=== PATIENT | male | born 1970 | race Caucasian/White ===

== ENCOUNTER 2022-06-03 06:08 | Day surgery (SDC) | payer BC, MEDICAID ==
[2022-06-03] MEDS ORDERED: Lidocaine 1%/Sod Bicarbonate in NS 8.4% 1 ML Syringe IDERM PRN (06:15)
[2022-06-03] MEDS ORDERED: Lactated Ringers 1,000 ML IV SCH (06:15)
[2022-06-03] MEDS ORDERED: fentaNYL 100 MCG/2 ML SDV ONE ×2 (06:18→07:18)
[2022-06-03] MEDS ORDERED: Propofol 200 MG/20 ML SDV ONE ×2 (06:19→06:23)
[2022-06-03] MEDS ORDERED: ceFAZolin 2 GM Vial ONE (06:22)
[2022-06-03] MEDS ORDERED: Ketorolac 30 MG/ML SDV ONE (06:24)
[2022-06-03] MEDS ORDERED: Ondansetron 4 MG/2 ML SDV ONE (06:24)
[2022-06-03] MEDS ORDERED: Bupivacaine 0.25% 10 ML SDV ONE (06:29)
[2022-06-03] MEDS ORDERED: Lidocaine 1% PF 2 ML SDV ONE (07:00)
[2022-06-03 08:51] VITALS: BP 118/74; PULSE 45
[2022-06-03] MEDS ORDERED: Sodium Chloride 0.9% 10 ML Syringe FLUSH SCH (09:00)
== END 2022-06-03 08:23 | disposition home or self-care (01) ==
LOC: JD.SDS 06:08
PROVIDERS: ATTEND Orthopaedic Surgery
DX: M23.41 Loose body in knee, right knee (principal); E78.00 Pure hypercholesterolemia, unspecified; E66.3 Overweight; F41.9 Anxiety disorder, unspecified; F32.A Depression, unspecified; Z79.899 Other long term (current) drug therapy; Z98.890 Other specified postprocedural states; Z68.28 Body mass index [BMI] 28.0-28.9, adult; Z79.82 Long term (current) use of aspirin
CPT/HCPCS: 01392; J0690; J1885; J2405; J2704; J3010; J3490; J7120